=== PATIENT | female | born 1970 | race African-American/Black ===

== ENCOUNTER 2017-08-13 08:28 | Emergency (ER) | payer MEDICARE ==
[~2017-08-13] VITALS: Ht 165.1 cm; Wt 122.0 kg
[~2017-08-13 08:28] MED LIST: NIFE10CA PO
[2017-08-13] MEDS ORDERED: AMLODIPINE 10MG TABLET PO ONE (09:30)
[2017-08-13 09:32] LABS: CHLORIDE 103 mEq/L (98-107)
[2017-08-13 09:40] LABS: HCG SCREEN NEGATIVE
[2017-08-13 10:42] VITALS: BP 167/104
== END 2017-08-13 10:44 | disposition home or self-care (01) ==
LOC: ER 08:48
DX: I16.0 Hypertensive urgency (principal); I10 Essential (primary) hypertension; E11.65 Type 2 diabetes mellitus with hyperglycemia; F17.200 Nicotine dependence, unspecified, uncomplicated; Z86.73 Personal history of transient ischemic attack (TIA), and cerebral infarction without residual deficits; Z88.2 Allergy status to sulfonamides; Z88.8 Allergy status to other drugs, medicaments and biological substances
CPT/HCPCS: 36415; 80048; 84703; 99284; Z7610

== ENCOUNTER 2017-09-25 06:38 | Emergency (ER) | payer MEDICARE ==
[~2017-09-25] VITALS: Ht 165.1 cm; Wt 150.0 kg
[2017-09-25] MEDS ORDERED: ONDANSETRON 4MG ODT PO ONE (07:00)
[2017-09-25 07:30] VITALS: BP 174/100
== END 2017-09-25 08:43 | disposition home or self-care (01) ==
LOC: ER 06:38
DX: R11.0 Nausea (principal); E11.9 Type 2 diabetes mellitus without complications; I10 Essential (primary) hypertension; Z86.73 Personal history of transient ischemic attack (TIA), and cerebral infarction without residual deficits; Z88.2 Allergy status to sulfonamides; Z88.8 Allergy status to other drugs, medicaments and biological substances
CPT/HCPCS: 99283; Q0162

== ENCOUNTER 2017-11-08 12:52 | Emergency (ER) | payer MEDICAID, MEDICARE ==
[~2017-11-08] VITALS: Ht 162.6 cm; Wt 124.0 kg
[2017-11-08] MEDS ORDERED: CLOP75TA16 PO (13:02)
[2017-11-08] MEDS ORDERED: NIFE10CA PO (13:02)
[2017-11-08] MEDS ORDERED: CLON0.1T PO (13:02)
[2017-11-08] MEDS ORDERED: [UNRECOGNIZED DRUG - CODE] PO (13:02)
[2017-11-08] MEDS ORDERED: METF10004 PO (13:02)
[2017-11-08] MEDS ORDERED: ASPIRIN 81MG TABLET PO ONE (13:15)
[2017-11-08 14:10] LABS: CLARITY URINE CLEAR (CLEAR); COLOR URINE YELLOW (YELLOW); KETONES URINE NEGATIVE (NEGATIVE); LEUKOCYTE ESTERASE URINE NEGATIVE (NEGATIVE); NITRITE URINE NEGATIVE (NEGATIVE); OCCULT BLOOD URINE NEGATIVE (NEGATIVE); PROTEIN URINE NEGATIVE (NEGATIVE); SPECIFIC GRAVITY URINE 1.013 (1.005-1.030); UROBILINOGEN URINE 0.2 E.U./dL (0.2-1.0)
[2017-11-08 14:31] LABS: BASOPHILS % 0.4 % (0.0-2.0); EOSINOPHILS % 1.2 % (0.0-5.0); HEMOGLOBIN. 13.2 g/dL (12.0-16.0); LYMPHOCYTES % 25.4 % (20.0-50.0); MEAN CORPUSCULAR HEMOGLOBIN 29.9 pg (28.0-32.0); MEAN CORPUSCULAR VOLUME 88.3 fL (81.0-99.0); MEAN PLATELET VOLUME 10.9 fl (7.4-10.4); MONOCYTES % 4.3 % (2.0-8.0); NEUTROPHILS % 68.7 % (40.0-76.0); PLATELET 157 x1000/uL (130-400); RED BLOOD CELL COUNT 4.41 mill/uL (4.2-5.4); RED CELL DISTRIBUTION WIDTH 15.6 % (11.6-14.6)
[2017-11-08 14:38] LABS: CHLORIDE 103 mEq/L (98-107)
[2017-11-08 14:40] LABS: INR 1.2; PROTHROMBIN TIME 12.5 sec (9.4-11.6)
[2017-11-08 14:41] LABS: *AMPHETAMINES SCREEN URINE NEGATIVE (NEGATIVE); CANNABINOID URINE SCREEN NEGATIVE (NEGATIVE); METHADONE URINE SCREEN NEGATIVE (NEGATIVE); OPIATES URINE SCREEN NEGATIVE (NEGATIVE); PHENCYCLIDINE URINE SCREEN NEGATIVE (NEGATIVE)
[2017-11-08 14:42] LABS: *BARBITURATES SCREEN URINE NEGATIVE (NEGATIVE); *BENZODIAZEPINES SCREEN URINE NEGATIVE (NEGATIVE); *COCAINE SCREEN URINE NEGATIVE (NEGATIVE)
[2017-11-08 14:46] LABS: LDL CHOLESTEROL 90 mg/dL (5-100)
[2017-11-08 14:47] LABS: HDL CHOLESTEROL 27 mg/dL (40-59)
[2017-11-08 16:07] VITALS: BP 128/73
== END 2017-11-08 20:13 | disposition home or self-care (01) ==
LOC: ER 12:52
DX: R07.9 Chest pain, unspecified (principal); E86.0 Dehydration; I11.0 Hypertensive heart disease with heart failure; I50.9 Heart failure, unspecified; E11.21 Type 2 diabetes mellitus with diabetic nephropathy; F41.9 Anxiety disorder, unspecified; F32.9 Major depressive disorder, single episode, unspecified; R73.09 Other abnormal glucose; Z79.899 Other long term (current) drug therapy; Z86.73 Personal history of transient ischemic attack (TIA), and cerebral infarction without residual deficits; Z88.2 Allergy status to sulfonamides; Z88.8 Allergy status to other drugs, medicaments and biological substances
CPT/HCPCS: 36415; 70450; 71045; 80053; 80061; 80305; 81003; 81025; 83036; 83690; 83880; 84484; 85025; 85610; 93005; 99285

== ENCOUNTER 2018-02-18 09:04 | Emergency (ER) | payer MEDICAID ==
[~2018-02-18] VITALS: Ht 172.7 cm; Wt 107.0 kg
[~2018-02-18 09:04] MED LIST changes: +CLON0.1T PO; +CLOP75TA16 PO; +METF10004 PO; +[UNRECOGNIZED DRUG - CODE] PO
[2018-02-18] MEDS ORDERED: SODIUM CHLORIDE 0.9% 1,000 ML IV ONE (09:47)
[2018-02-18] MEDS ORDERED: ONDANSETRON HCL 4MG/2ML INJ IV STA (09:47)
[2018-02-18] MEDS ORDERED: MORPHINE SULFATE 4 MG/ML CPJ (NOT FOR IM USE) IV STA (09:47)
[2018-02-18 10:10] LABS: CLARITY URINE CLEAR (CLEAR); COLOR URINE YELLOW (YELLOW); KETONES URINE NEGATIVE (NEGATIVE); LEUKOCYTE ESTERASE URINE NEGATIVE (NEGATIVE); NITRITE URINE NEGATIVE (NEGATIVE); OCCULT BLOOD URINE 2+ (NEGATIVE); PH URINE 5.5 (4.5-8.0); PROTEIN URINE 1+ (NEGATIVE); SPECIFIC GRAVITY URINE 1.018 (1.005-1.030); UROBILINOGEN URINE 0.2 E.U./dL (0.2-1.0)
[2018-02-18 10:12] LABS: BASOPHILS % 0.9 % (0.0-2.0); HEMOGLOBIN. 14.4 g/dL (12.0-16.0); LYMPHOCYTES % 28.4 % (20.0-50.0); MEAN CORPUSCULAR HEMOGLOBIN 30.6 pg (28.0-32.0); MEAN CORPUSCULAR VOLUME 89.1 fL (81.0-99.0); MEAN PLATELET VOLUME 10.4 fl (7.4-10.4); MONOCYTES % 5.1 % (2.0-8.0); NEUTROPHILS % 64.6 % (40.0-76.0); PLATELET 155 x1000/uL (130-400); RED BLOOD CELL COUNT 4.72 mill/uL (4.2-5.4); RED CELL DISTRIBUTION WIDTH 14.6 % (11.6-14.6)
[2018-02-18 10:18] LABS: CHLORIDE 102 mEq/L (98-107)
[2018-02-18 10:19] LABS: HCG SCREEN NEGATIVE
[2018-02-18 10:20] LABS: INR 1.1; PROTHROMBIN TIME 11.2 sec (9.1-11.1)
[2018-02-18 12:10] VITALS: BP 154/89
== END 2018-02-18 12:28 | disposition home or self-care (01) ==
LOC: ER 09:11
DX: R10.32 Left lower quadrant pain (principal); R19.7 Diarrhea, unspecified; R11.2 Nausea with vomiting, unspecified; I11.0 Hypertensive heart disease with heart failure; I50.9 Heart failure, unspecified; E11.9 Type 2 diabetes mellitus without complications; E78.00 Pure hypercholesterolemia, unspecified; F41.9 Anxiety disorder, unspecified; N28.9 Disorder of kidney and ureter, unspecified; F32.9 Major depressive disorder, single episode, unspecified; J06.9 Acute upper respiratory infection, unspecified; N39.0 Urinary tract infection, site not specified; F17.200 Nicotine dependence, unspecified, uncomplicated; Z86.73 Personal history of transient ischemic attack (TIA), and cerebral infarction without residual deficits; Z88.2 Allergy status to sulfonamides; Z88.1 Allergy status to other antibiotic agents; Z88.8 Allergy status to other drugs, medicaments and biological substances; Z79.899 Other long term (current) drug therapy
CPT/HCPCS: 36415; 74176; 80053; 81003; 81025; 83690; 84703; 85025; 85610; 96361; 96374; 96375; 99285; J2270; J2405; J7030; Z7610

== ENCOUNTER 2018-06-29 10:51 | Emergency (ER) | payer MEDICAID ==
[~2018-06-29] VITALS: Ht 167.6 cm; Wt 92.0 kg
[~2018-06-29 10:51] MED LIST changes: +METF-416 PO; -METF10004 PO
[2018-06-29 11:07] VITALS: BP 198/100
== END 2018-06-29 11:38 | disposition left against medical advice (07) ==
LOC: ER 10:51
DX: R53.1 Weakness (principal); Z53.21 Procedure and treatment not carried out due to patient leaving prior to being seen by health care provider

== ENCOUNTER 2018-08-12 01:23 | Emergency (ER) | payer MEDICAID ==
[~2018-08-12] VITALS: Ht 162.6 cm; Wt 122.0 kg
[2018-08-12 02:45] LABS: BASOPHILS % 0.7 % (0.0-2.0); EOSINOPHILS % 1.3 % (0.0-5.0); HEMATOCRIT. 40.2 % (36.0-48.0); HEMOGLOBIN. 13.9 g/dL (12.0-16.0); LYMPHOCYTES % 29.6 % (20.0-50.0); MEAN CORPUSCULAR HEMOGLOBIN 31.3 pg (28.0-32.0); MEAN CORPUSCULAR VOLUME 90.8 fL (81.0-99.0); MEAN PLATELET VOLUME 11.1 fl (7.4-10.4); MONOCYTES % 5.4 % (2.0-8.0); PLATELET 162 x1000/uL (130-400); RED BLOOD CELL COUNT 4.43 mill/uL (4.2-5.4); RED CELL DISTRIBUTION WIDTH 13.5 % (11.6-14.6)
[2018-08-12 02:47] LABS: CHLORIDE 97 mEq/L (98-107)
[2018-08-12 02:48] LABS: CLARITY URINE CLEAR (CLEAR); COLOR URINE YELLOW (YELLOW); KETONES URINE NEGATIVE (NEGATIVE); LEUKOCYTE ESTERASE URINE 1+ (NEGATIVE); NITRITE URINE NEGATIVE (NEGATIVE); OCCULT BLOOD URINE NEGATIVE (NEGATIVE); PROTEIN URINE NEGATIVE (NEGATIVE); SPECIFIC GRAVITY URINE 1.029 (1.005-1.030); UROBILINOGEN URINE 0.2 E.U./dL (0.2-1.0)
[2018-08-12 02:49] LABS: INR 1.1; PROTHROMBIN TIME 11.1 sec (9.1-11.1)
[2018-08-12 03:05] LABS: *AMPHETAMINES SCREEN URINE NEGATIVE (NEGATIVE); *BARBITURATES SCREEN URINE NEGATIVE (NEGATIVE); *BENZODIAZEPINES SCREEN URINE NEGATIVE (NEGATIVE); *COCAINE SCREEN URINE NEGATIVE (NEGATIVE)
[2018-08-12 03:06] LABS: CANNABINOID URINE SCREEN NEGATIVE (NEGATIVE); METHADONE URINE SCREEN NEGATIVE (NEGATIVE); OPIATES URINE SCREEN NEGATIVE (NEGATIVE); PHENCYCLIDINE URINE SCREEN NEGATIVE (NEGATIVE)
[2018-08-12] MEDS ORDERED: SODIUM CHLORIDE 0.9% 500 ML IV ONE (03:45)
[2018-08-12] MEDS ORDERED: INSULIN REGULAR (HUMULIN R) 300UNITS/3ML SUBCUT ONE (04:00)
[2018-08-12] MEDS ORDERED: ONDANSETRON 4MG ODT PO ONE (05:15)
[2018-08-12 06:27] VITALS: BP 135/85
== END 2018-08-12 06:29 | disposition home or self-care (01) ==
LOC: ER 01:23
DX: R07.9 Chest pain, unspecified (principal); N39.0 Urinary tract infection, site not specified; E11.65 Type 2 diabetes mellitus with hyperglycemia; I11.0 Hypertensive heart disease with heart failure; I50.9 Heart failure, unspecified; I25.2 Old myocardial infarction; F17.200 Nicotine dependence, unspecified, uncomplicated; F20.9 Schizophrenia, unspecified; Z79.4 Long term (current) use of insulin; Z86.73 Personal history of transient ischemic attack (TIA), and cerebral infarction without residual deficits
CPT/HCPCS: 36415; 71045; 80053; 80305; 81003; 81025; 82962; 83880; 84484; 85025; 85610; 93005; 96360; 96372; 99284; J1815; J7040; Q0162; Z7610

== ENCOUNTER 2018-10-28 17:08 | Emergency (ER) | payer MEDICAID ==
[~2018-10-28] VITALS: Ht 162.6 cm; Wt 115.9 kg
[~2018-10-28 17:08] MED LIST changes: -CLOP75TA16 PO; +CLOP75TA4 PO
[2018-10-28 22:29] LABS: CLARITY URINE CLOUDY (CLEAR); COLOR URINE DARK YELLOW (YELLOW); KETONES URINE NEGATIVE (NEGATIVE); LEUKOCYTE ESTERASE URINE NEGATIVE (NEGATIVE); NITRITE URINE NEGATIVE (NEGATIVE); OCCULT BLOOD URINE 2+ (NEGATIVE); PH URINE 5.5 (4.5-8.0); PROTEIN URINE 2+ (NEGATIVE); SPECIFIC GRAVITY URINE 1.033 (1.005-1.030)
[2018-10-28 23:19] VITALS: BP 146/81
== END 2018-10-28 23:21 | disposition home or self-care (01) ==
LOC: ER 17:08
DX: R31.9 Hematuria, unspecified (principal); E11.9 Type 2 diabetes mellitus without complications; E78.00 Pure hypercholesterolemia, unspecified; I10 Essential (primary) hypertension; Z86.73 Personal history of transient ischemic attack (TIA), and cerebral infarction without residual deficits; Z87.891 Personal history of nicotine dependence; Z98.890 Other specified postprocedural states; Z79.899 Other long term (current) drug therapy; Z88.2 Allergy status to sulfonamides; Z88.8 Allergy status to other drugs, medicaments and biological substances
CPT/HCPCS: 81003; 81025; 99283; Z7610

== ENCOUNTER 2019-07-20 18:39 | Emergency (ER) | payer MEDICAID ==
[~2019-07-20] VITALS: Ht 167.6 cm; Wt 118.0 kg
[2019-07-20] MEDS ORDERED: MORPHINE SULFATE 4 MG/ML CPJ (NOT FOR IM USE) IV STA (20:44)
[2019-07-20] MEDS ORDERED: ONDANSETRON HCL 4MG/2ML INJ IV STA (20:44)
[2019-07-20] MEDS ORDERED: SODIUM CHLORIDE 0.9% 1,000 ML IV ONE (20:44)
[2019-07-20] MEDS ORDERED: HYDRALAZINE 20MG/ML VIAL IV ONE (20:45)
[2019-07-20 21:32] LABS: CHLORIDE 101 mEq/L (98-107)
[2019-07-20 21:34] LABS: BASOPHILS % 0.5 % (0.0-2.0); EOSINOPHILS % 0.8 % (0.0-5.0); HEMATOCRIT. 43.8 % (36.0-48.0); HEMOGLOBIN. 15.2 g/dL (12.0-16.0); LYMPHOCYTES % 33.4 % (20.0-50.0); MEAN CORPUSCULAR HEMOGLOBIN 31.8 pg (28.0-32.0); MEAN CORPUSCULAR VOLUME 91.8 fL (81.0-99.0); MEAN PLATELET VOLUME 11.1 fl (7.4-10.4); MONOCYTES % 5.1 % (2.0-8.0); NEUTROPHILS % 60.2 % (40.0-76.0); PLATELET 161 x1000/uL (130-400); RED BLOOD CELL COUNT 4.77 mill/uL (4.2-5.4); RED CELL DISTRIBUTION WIDTH 14.1 % (11.6-14.6)
[2019-07-21 00:21] VITALS: BP 134/77
== END 2019-07-21 00:22 | disposition home or self-care (01) ==
LOC: ER 18:39
DX: R51 Headache (principal); R42 Dizziness and giddiness; M54.9 Dorsalgia, unspecified; I11.0 Hypertensive heart disease with heart failure; I50.9 Heart failure, unspecified; E78.00 Pure hypercholesterolemia, unspecified; E11.9 Type 2 diabetes mellitus without complications; V49.88XA Car occupant (driver) (passenger) injured in other specified transport accidents, initial encounter; Y93.89 Activity, other specified; Y92.89 Other specified places as the place of occurrence of the external cause; Z88.2 Allergy status to sulfonamides; Z86.73 Personal history of transient ischemic attack (TIA), and cerebral infarction without residual deficits
CPT/HCPCS: 36415; 70450; 71045; 72100; 73522; 80053; 85025; 93005; 96361; 96374; 96375; 99285; J0360; J2270; J2405; J7030

== ENCOUNTER 2020-08-26 23:41 | Emergency (ER) | payer MEDICAID ==
[~2020-08-26] VITALS: Ht 162.6 cm; Wt 113.0 kg
[~2020-08-26 23:41] MED LIST changes: +CLOP-31 PO; -CLOP75TA4 PO
[2020-08-27] VITALS: BP 198/107
[2020-08-27] MEDS ORDERED: AMOX-424 MT (01:53)
== END 2020-08-27 03:02 | disposition home or self-care (01) ==
LOC: ER 23:41
DX: S21.052A Open bite of left breast, initial encounter (principal); F15.10 Other stimulant abuse, uncomplicated; I11.0 Hypertensive heart disease with heart failure; E11.9 Type 2 diabetes mellitus without complications; Z86.73 Personal history of transient ischemic attack (TIA), and cerebral infarction without residual deficits; Z98.890 Other specified postprocedural states; Z88.8 Allergy status to other drugs, medicaments and biological substances; Z88.2 Allergy status to sulfonamides; Z79.84 Long term (current) use of oral hypoglycemic drugs; Y04.1XXA Assault by human bite, initial encounter; Y07.01 Husband, perpetrator of maltreatment and neglect; Y93.89 Activity, other specified; Y92.018 Other place in single-family (private) house as the place of occurrence of the external cause
CPT/HCPCS: 70450; 81025; 99284; Z7610

== ENCOUNTER 2021-08-22 22:29 | Emergency (ER) | payer MEDICAID ==
[~2021-08-22] VITALS: Ht 167.6 cm; Wt 100.0 kg
[~2021-08-22 22:29] MED LIST changes: +AMOX-424 MT
[2021-08-22] MEDS ORDERED: ASPIRIN 81MG TABLET PO ONE (23:00)
[2021-08-22] MEDS ORDERED: NITROGLYCERIN 0.4MG TABLET SL SL PRN (23:00)
[2021-08-23 00:13] LABS: BASOPHILS % 0.3 % (0.0-2.0); EOSINOPHILS % 0.9 % (0.0-5.0); HEMATOCRIT. 39.8 % (36.0-48.0); HEMOGLOBIN. 13.7 g/dL (12.0-16.0); LYMPHOCYTES % 27.7 % (20.0-50.0); MEAN CORPUSCULAR HEMOGLOBIN 31.5 pg (28.0-32.0); MEAN CORPUSCULAR VOLUME 91.3 fL (81.0-99.0); MEAN PLATELET VOLUME 10.2 fl (7.4-10.4); MONOCYTES % 4.7 % (2.0-8.0); NEUTROPHILS % 66.4 % (40.0-76.0); PLATELET 191 x1000/uL (130-400); RED BLOOD CELL COUNT 4.36 mill/uL (4.2-5.4); RED CELL DISTRIBUTION WIDTH 13.6 % (11.6-14.6)
[2021-08-23 00:44] LABS: CHLORIDE 100 mEq/L (98-107)
[2021-08-23] MEDS ORDERED: POTASSIUM CHLORIDE 20MEQ TABLET SR PO SCH (01:00)
[2021-08-23 05:15] VITALS: BP 140/84
== END 2021-08-23 06:07 | disposition home or self-care (01) ==
LOC: ER 22:29
DX: R07.89 Other chest pain (principal); E11.9 Type 2 diabetes mellitus without complications; I10 Essential (primary) hypertension; Z88.2 Allergy status to sulfonamides; Z88.8 Allergy status to other drugs, medicaments and biological substances; Z88.1 Allergy status to other antibiotic agents
CPT/HCPCS: 36415; 71045; 80053; 83880; 84484; 85025; 93005; 99285

== ENCOUNTER 2023-11-08 19:56 | Inpatient (IN) | payer MEDICAID ==
[~2023-11-08] VITALS: Ht 167.6 cm; Wt 120.0 kg
[2023-11-08] MEDS: LORAZEPAM 2MG/ML INJ IM ONE (20:45)
[2023-11-08] MEDS: DIPHENHYDRAMINE 50MG/ML VIAL IM PRN (21:19)
[2023-11-08] MEDS: DIAZEPAM 5 MG/ML 2ML SYR IM ONE (23:52)
[2023-11-09 01:27] LABS: BASOPHILS % 0.3 % (0.0-2.0); EOSINOPHILS % 0.1 % (0.0-5.0); HEMATOCRIT. 38.5 % (36.0-48.0); HEMOGLOBIN. 13.1 g/dL (12.0-16.0); LYMPHOCYTES % 22.9 % (20.0-50.0); MEAN CORPUSCULAR HEMOGLOBIN 32.1 pg (28.0-32.0); MEAN CORPUSCULAR HGB CONC 34.1 g/dL (31.0-37.0); MEAN CORPUSCULAR VOLUME 94.1 fL (81.0-99.0); MEAN PLATELET VOLUME 9.3 fl (7.4-10.4); MONOCYTES % 6.8 % (2.0-8.0); NEUTROPHILS % 69.9 % (40.0-76.0); PLATELET 255 x1000/uL (130-400); RED BLOOD CELL COUNT 4.09 mill/uL (4.2-5.4); WHITE BLOOD COUNT 12.2 x1000/uL (4.5-11.0)
[2023-11-09 01:36] LABS: CHLORIDE 108 mEq/L (98-107); POTASSIUM 3.3 mEq/L (3.5-5.1); SODIUM 148 mEq/L (136-145)
[2023-11-09 01:37] LABS: CALCIUM 10.2 mg/dL (8.7-10.4); CARBON DIOXIDE 29 mEq/L (21-32)
[2023-11-09 01:42] LABS: CREATININE 1.1 mg/dL (0.6-1.0); ETHANOL BLOOD < 10 mg/dL (<10); GLUCOSE 248 mg/dL (70-105); UREA NITROGEN BLOOD 24 mg/dL (9-23)
[2023-11-09 01:44] LABS: TROPONIN I HIGH SENSITIVITY 15 ng/L (3.0-34)
[2023-11-09] MEDS: LORAZEPAM 2MG/ML INJ IM ONE ×2 (02:00→12:29)
[2023-11-09] MEDS: OLANZAPINE 10 MG/VIAL IM ONE (04:39)
[2023-11-09 05:35] LABS: CLARITY URINE CLOUDY (CLEAR); COLOR URINE DARK YELLOW (YELLOW); GLUCOSE URINE 3+ (NEGATIVE); KETONES URINE TRACE (NEGATIVE); LEUKOCYTE ESTERASE URINE NEGATIVE (NEGATIVE); NITRITE URINE NEGATIVE (NEGATIVE); OCCULT BLOOD URINE NEGATIVE (NEGATIVE); PROTEIN URINE 2+ (NEGATIVE); SPECIFIC GRAVITY URINE 1.035 (1.005-1.030)
[2023-11-09 05:42] LABS: CREATINE KINASE 666 IU/L (34-145)
[2023-11-09 05:42] LABS: *AMPHETAMINES SCREEN URINE NEGATIVE (NEGATIVE); *BARBITURATES SCREEN URINE NEGATIVE (NEGATIVE); *COCAINE SCREEN URINE PRESUMPTIVE POSITIVE (NEGATIVE)
[2023-11-09 05:43] LABS: ECSTASY MDMA SCREEN URINE NEGATIVE (NEGATIVE); METHADONE URINE SCREEN NEGATIVE (NEGATIVE); OPIATES URINE SCREEN NEGATIVE (NEGATIVE); PHENCYCLIDINE URINE SCREEN NEGATIVE (NEGATIVE)
[2023-11-09 07:10] LABS: SQUAMOUS EPITHELIAL CELL URINE FEW /lpf (RARE/1+)
[2023-11-09 07:13] LABS: RBC URINE 15-25 /hpf (0-2)
[2023-11-09 07:16] LABS: BACTERIA URINE TRACE
[2023-11-09] MEDS: SODIUM CHLORIDE 0.9% 1,000 ML IV ONE (09:01)
[2023-11-09 18:30] VITALS: BP 132/77; PULSE 84; RESP 27
[2023-11-09 20:00] VITALS: BP 109/67; PULSE 81; RESP 23; TEMP 97.3
[2023-11-09] MEDS ORDERED: METH-773 PO (21:52)
[2023-11-09] MEDS ORDERED: AMLO10TA80 PO (21:58)
[2023-11-09] MEDS ORDERED: INSU100I24 SUBCUT (21:58)
[2023-11-09] MEDS ORDERED: ROSU40TA PO (21:58)
[2023-11-09] MEDS ORDERED: TELM80TA8 PO (21:58)
[2023-11-09] MEDS ORDERED: ARIP30TA17 PO (21:58)
[2023-11-09] MEDS ORDERED: ESCI-7 PO (21:58)
[2023-11-09] MEDS ORDERED: CHLO50TA PO (21:58)
[2023-11-09] MEDS ORDERED: EZET10TA81 PO (21:58)
[2023-11-09] MEDS ORDERED: DICL75TA5 PO (21:58)
[2023-11-09] MEDS ORDERED: TRAZ-252 PO (21:58)
[2023-11-09] MEDS ORDERED: OXYB5TAB21 PO (21:58)
[2023-11-09] MEDS ORDERED: GABA-532 PO (21:58)
[2023-11-09] MEDS ORDERED: LORAZEPAM 0.5MG TABLET PO PRN (22:15)
[2023-11-09] MEDS ORDERED: CLONIDINE 0.1MG TABLET PO PRN (22:15)
[2023-11-09] MEDS ORDERED: DEXTROSE 50% WATER 50ML SYRINGE IV PRN (22:30)
[2023-11-09] MEDS: INSULIN LISPRO 100 UNITS/ML SUBCUT SCH (23:00)
[2023-11-10] VITALS (7 sets, daily range): BP systolic 109–148; BP diastolic 67–88; PULSE 72–95; RESP 19–27; TEMP 97.3–98.7
[2023-11-10 05:03] LABS: CARBON DIOXIDE 28 mEq/L (21-32); CHLORIDE 106 mEq/L (98-107); POTASSIUM 3.6 mEq/L (3.5-5.1); SODIUM 145 mEq/L (136-145)
[2023-11-10 05:04] LABS: CALCIUM 9.1 mg/dL (8.7-10.4)
[2023-11-10 05:08] LABS: CREATININE 0.9 mg/dL (0.6-1.0)
[2023-11-10 05:09] LABS: GLUCOSE 384 mg/dL (70-105); UREA NITROGEN BLOOD 18 mg/dL (9-23)
[2023-11-10 05:10] LABS: ALANINE AMINOTRANSFERASE 43 IU/L (10-49); ALBUMIN 3.7 g/dL (3.2-4.8); ASPARTATE AMINOTRANSFERASE 39 IU/L (<34)
[2023-11-10 05:11] LABS: BILIRUBIN TOTAL 0.3 mg/dL (0.1-1.0); PROTEIN TOTAL 6.6 g/dL (6.0-8.3)
[2023-11-10 05:28] LABS: BASOPHILS % 0.5 % (0.0-2.0); EOSINOPHILS % 3.5 % (0.0-5.0); HEMATOCRIT. 34.9 % (36.0-48.0); HEMOGLOBIN. 11.6 g/dL (12.0-16.0); LYMPHOCYTES % 20.3 % (20.0-50.0); MEAN CORPUSCULAR HEMOGLOBIN 32.2 pg (28.0-32.0); MEAN CORPUSCULAR HGB CONC 33.3 g/dL (31.0-37.0); MEAN CORPUSCULAR VOLUME 96.7 fL (81.0-99.0); MEAN PLATELET VOLUME 9.9 fl (7.4-10.4); MONOCYTES % 5.3 % (2.0-8.0); NEUTROPHILS % 70.4 % (40.0-76.0); PLATELET 200 x1000/uL (130-400); RED BLOOD CELL COUNT 3.61 mill/uL (4.2-5.4); RED CELL DISTRIBUTION WIDTH 14.1 % (11.6-14.6)
[2023-11-10] MEDS: BLOOD SUGAR DIAGNOSTIC STRIP TEST SCH (07:30)
[2023-11-10] MEDS: SODIUM CHLORIDE 0.9% 1,000 ML IV SCH (14:19)
[2023-11-10] MEDS ORDERED: IPRATROPIUM/ALBUTEROL 0.5-3(2.5)MG/3ML NEB HHN PRN (16:15)
[2023-11-10 17:29] LABS: TROPONIN I HIGH SENSITIVITY 9 ng/L (3.0-34)
[2023-11-10 17:31] LABS: CREATINE KINASE 859 IU/L (34-145)
[2023-11-11] VITALS (7 sets, daily range): BP systolic 113–150; BP diastolic 66–101; PULSE 74–92; RESP 18–25; TEMP 96.8–97.8; O2SAT 91
[2023-11-11 16:49] LABS: BASOPHILS % 0.4 % (0.0-2.0); EOSINOPHILS % 5.9 % (0.0-5.0); HEMOGLOBIN. 12.3 g/dL (12.0-16.0); LYMPHOCYTES % 26.9 % (20.0-50.0); MEAN CORPUSCULAR HEMOGLOBIN 31.8 pg (28.0-32.0); MEAN CORPUSCULAR HGB CONC 33.2 g/dL (31.0-37.0); MEAN CORPUSCULAR VOLUME 95.8 fL (81.0-99.0); MEAN PLATELET VOLUME 9.6 fl (7.4-10.4); NEUTROPHILS % 62.8 % (40.0-76.0); PLATELET 191 x1000/uL (130-400); RED BLOOD CELL COUNT 3.86 mill/uL (4.2-5.4); RED CELL DISTRIBUTION WIDTH 14.4 % (11.6-14.6); WHITE BLOOD COUNT 6.9 x1000/uL (4.5-11.0)
[2023-11-11 17:07] LABS: CHLORIDE 109 mEq/L (98-107); POTASSIUM 3.7 mEq/L (3.5-5.1); SODIUM 144 mEq/L (136-145)
[2023-11-11 17:08] LABS: CARBON DIOXIDE 27 mEq/L (21-32)
[2023-11-11 17:09] LABS: CALCIUM 8.9 mg/dL (8.7-10.4)
[2023-11-11 17:13] LABS: CREATININE 0.6 mg/dL (0.6-1.0); GLUCOSE 216 mg/dL (70-105)
[2023-11-11 17:14] LABS: UREA NITROGEN BLOOD 10 mg/dL (9-23)
== END 2023-11-11 18:50 | disposition home or self-care (01) | DRG 816 ==
LOC: ER 19:56 → EDBEDREQTM 11-09 13:24 → EDBEDREQ 11-09 13:24 → 5EST 11-09 18:59
PROVIDERS: ADMIT Internal Medicine; ATTEND Internal Medicine
PROC: 5A09357 Assistance with Respiratory Ventilation, Less than 24 Consecutive Hours, Continuous Positive Airway Pressure (ICD-10-PCS; principal; 2023-11-11)
DX: T40.5X1A Poisoning by cocaine, accidental (unintentional), initial encounter (principal); J96.01 Acute respiratory failure with hypoxia; N17.9 Acute kidney failure, unspecified; M62.82 Rhabdomyolysis; E87.0 Hyperosmolality and hypernatremia; D64.9 Anemia, unspecified; E11.65 Type 2 diabetes mellitus with hyperglycemia; I10 Essential (primary) hypertension; F10.20 Alcohol dependence, uncomplicated; Z68.42 Body mass index [BMI] 45.0-49.9, adult; E66.01 Morbid (severe) obesity due to excess calories; F19.10 Other psychoactive substance abuse, uncomplicated; D72.829 Elevated white blood cell count, unspecified; F17.210 Nicotine dependence, cigarettes, uncomplicated; F14.90 Cocaine use, unspecified, uncomplicated; E87.6 Hypokalemia; R81 Glycosuria; Z79.84 Long term (current) use of oral hypoglycemic drugs; Z79.4 Long term (current) use of insulin; Z78.1 Physical restraint status; Z88.2 Allergy status to sulfonamides; Y92.89 Other specified places as the place of occurrence of the external cause
CPT/HCPCS: 36415; 71045; 80048; 80053; 80305; 80320; 81003; 82550; 82962; 83036; 84484; 85025; 93005; 93306; 99291; J1200; J1815; J2060; J3490; J7030; G0480